=== PATIENT | male | born 1945 | race Caucasian/White ===

== ENCOUNTER 2016-10-22 12:01 | Day surgery (SDC) | payer MEDICARE ==
[2016-10-20 12:35] LABS: HEMOGLOBIN 15.1 g/dL (13.7-18.0)
[2016-10-20 12:46] LABS: BLOOD UREA NITROGEN 17 mg/dL (7-18)
[~2016-10-22] VITALS: Ht 182.9 cm; Wt 104.0 kg
[~2016-10-22 12:01] MED LIST: ASCO10004 PO; ASPI-515 PO; MAGNESIUM PO; MULT-516 PO; OMEG1CAP12 PO; UBID100C19 PO; VITA1TAB19 PO; [UNRECOGNIZED DRUG - REMARK] PO
[2016-10-22 12:21] VITALS: BP 112/71
[2016-10-22] MEDS ORDERED: LACTATED RINGERS 1,000 ML IV SCH (12:24)
[2016-10-22] MEDS ORDERED: CIPROFLOXACIN/PMX 400MG/200ML 0 ML ONE (12:42)
[2016-10-22] MEDS ORDERED: CHLORHEXIDINE GLUCONATE MOUTHWASH 0.12%, 473ML ONE (12:42)
[2016-10-22] MEDS ORDERED: hydrALAzine 20 MG/ML, 1ML IV PRN (13:00)
[2016-10-22] MEDS ORDERED: OXYcodone 5 MG/5 ML ORAL.SOL UDC PO PRN (13:00)
[2016-10-22] MEDS ORDERED: METOPROLOL 1 MG/ML, 5ML IV PRN (13:00)
[2016-10-22] MEDS ORDERED: LABETALOL 5MG/ML, 20ML IV PRN (13:00)
[2016-10-22] MEDS ORDERED: ONDANSETRON 2MG/ML, 2ML IVPush PRN (13:00)
[2016-10-22] MEDS ORDERED: ALBUTEROL SULFATE 2.5 MG/3 ML NPPB PRN (13:00)
[2016-10-22] MEDS ORDERED: EPHEDRINE 50 MG/ML, 1ML IVPush PRN (13:00)
[2016-10-22] MEDS ORDERED: ACETAMINOPHEN 325 MG TABLET PO PRN (13:00)
[2016-10-22] MEDS ORDERED: FENTANYL PF 100 MCG/2ML IV PRN (13:00)
[2016-10-22] MEDS ORDERED: ONDANSETRON 2MG/ML, 2ML ONE (13:51)
[2016-10-22] MEDS ORDERED: PROPOFOL 10 MG/ML, 20ML ONE (13:51)
[2016-10-22] MEDS ORDERED: SUCCINYLCHOLINE 20 MG/ML, 10ML ONE (13:51)
[2016-10-22] MEDS ORDERED: FENTANYL PF 100 MCG/2ML ONE (14:07)
== END 2016-10-22 16:20 ==
LOC: OUT 12:01
PROVIDERS: ATTEND Internal Medicine Gastroenterology
PROC: 0DJ08ZZ Inspection of Upper Intestinal Tract, Via Natural or Artificial Opening Endoscopic (ICD-10-PCS; principal; 2016-10-22 14:00)
DX: K86.1 Other chronic pancreatitis (principal); K80.20 Calculus of gallbladder without cholecystitis without obstruction
CPT/HCPCS: 36415; 43261; 74330; 80048; 85025; 88305; 93005; J0330; J2405; J2704; J3010; J7120; J0744